=== PATIENT | female | born 1960 | race American Indian/Alaskan Native ===

== ENCOUNTER 2016-11-09 09:45 | Outpatient (CLI) | payer OTHER ==
--- NOTE | 2016-11-09 14:02 | Mammography Report ---
BILATERAL DIGITAL SCREENING MAMMOGRAM with CAD: 11/09/16 09:45:00 CLINICAL: Routine screening. COMPARISON:04/21/14 FINDINGS: The breasts are heterogeneously dense, which may obscure small masses. No mass, architectural distortion or suspicious calcifications. IMPRESSION: No mammographic evidence of malignancy. BI-RADS CATEGORY: 1 - - Negative RECOMMENDATION: Routine mammographic screening in one year. COMMENT: Patient follow-up letters are generated by our [employer] application.
== END 2016-11-09 09:46 | disposition home or self-care (01) ==
LOC: SPVWC 09:45
PROVIDERS: ATTEND Obstetrics & Gynecology
DX: Z12.31 Encounter for screening mammogram for malignant neoplasm of breast (principal)
CPT/HCPCS: 77067; G0202

== ENCOUNTER 2017-11-26 15:43 | Outpatient (CLI) | payer OTHER ==
--- NOTE | 2017-11-27 13:25 | Mammography Report ---
BILATERAL DIGITAL SCREENING MAMMOGRAM with CAD :11/26/17 15:43:00 CLINICAL: Routine screening. COMPARISON:11/09/16 FINDINGS: The breasts are extremely dense, which lowers the sensitivity of mammography. No mass, architectural distortion or suspicious calcifications. IMPRESSION: No mammographic evidence of malignancy. BI-RADS CATEGORY: 2 -- Benign RECOMMENDATION: Routine mammographic screening in one year. ACR BI-RADS MAMMOGRAPHIC CODES: 0 = Needs additional imaging evaluation; 1 = Negative; 2 = Benign; 3 = Probably benign; 4 = Suspicious; 5 = Malignant; 6 = Known biopsy-proven malignancy COMMENT: 1. Dense breast tissue, i.e., adenosis, fibrocystic changes, etc., may obscure an underlying neoplasm. 2. Approximately 10% of cancers are not detected with mammography. 3. A negative mammography report should not delay biopsy if a clinically suspicious mass is present. Patient follow-up letters are generated by our [employer] application.
== END 2017-11-26 15:44 | disposition home or self-care (01) ==
LOC: SPVWC 15:43
PROVIDERS: ATTEND Obstetrics & Gynecology
DX: Z12.31 Encounter for screening mammogram for malignant neoplasm of breast (principal)
CPT/HCPCS: 77067

== ENCOUNTER 2019-04-01 15:40 | Outpatient (CLI) | payer OTHER ==
--- NOTE | 2019-04-02 14:02 | Mammography Report ---
DIGITAL SCREENING MAMMOGRAM WITH CAD, 04/01/2019 INDICATION: Routine screening mammography. TECHNIQUE: Digital bilateral 2D mammography was obtained in the craniocaudal and mediolateral obliq ue projections. This examination was interpreted with the benefit of Computer-Aided Detection analysi s. COMPARISON: 11/26/2017 FINDINGS: Breast Density: The breasts are extremely dense, which lowers the sensitivity of mammography. There is no evidence of dominant mass, suspicious calcifications or architectural distortion in eithe r breast. IMPRESSION: No mammographic evidence of malignancy. Follow up recommendation: Routine yearly BI-RADS Category 2: Benign. A "normal" or negative report should not discourage follow up or biopsy of a clinically significant f inding. A written summary of these findings will be mailed to the patient. The patient will be entered into a mammography reporting system which will generate a reminder letter for the patient's next appointmen t at the appropriate interval. The [employer] recommends yearly mammograms starting at age 40 and continuing as l rosanne as a woman is in good health. Breast MRI is recommended for women with an approximate 20-25% or greater lifetime risk of breast cancer, including women with a strong family history of breast or ova eleazar cancer or who have been treated for Hodgkin's disease. Signer Name: Simón Styles MD Signed: 04/02/2019 1:57 PM Workstation Name: [id number]
== END 2019-04-01 15:41 | disposition home or self-care (01) ==
LOC: SPVWC 15:40
PROVIDERS: ATTEND Obstetrics & Gynecology
DX: Z12.31 Encounter for screening mammogram for malignant neoplasm of breast (principal)
CPT/HCPCS: 77067

== ENCOUNTER 2020-04-26 12:32 | Outpatient (CLI) | payer OTHER ==
--- NOTE | 2020-04-26 14:54 | Mammography Report ---
DIGITAL SCREENING MAMMOGRAM WITH CAD, 04/26/2020 CLINICAL INFORMATION / INDICATION: Routine screening mammography. TECHNIQUE: Digital bilateral 2D mammography was obtained in the craniocaudal and mediolateral obliqu e projections. This examination was interpreted with the benefit of Computer-Aided Detection analysis . COMPARISON: 04/01/2019 and prior FINDINGS: Breast Density: The breasts are extremely dense, which lowers the sensitivity of mammography. No dominant mass, suspicious calcifications, or architectural distortion in either breast. IMPRESSION: No mammographic evidence of malignancy. Follow up recommendation: Routine yearly BI-RADS Category 1: Negative. A "normal" or negative report should not discourage follow up or biopsy of a clinically significant f inding. A written summary of these findings will be mailed to the patient. The patient will be entered into a mammography reporting system which will generate a reminder letter for the patient's next appointmen t at the appropriate interval. The [employer] recommends yearly mammograms starting at age 40 and continuing as l rosanne as a woman is in good health. Breast MRI is recommended for women with an approximate 20-25% or greater lifetime risk of breast cancer, including women with a strong family history of breast or ova eleazar cancer or who have been treated for Hodgkin's disease. Signer Name: Herminio De Los Santos MD Signed: 04/26/2020 2:50 PM Workstation Name: [id number]
== END 2020-04-26 12:33 | disposition home or self-care (01) ==
LOC: SPVWC 12:32
PROVIDERS: ATTEND Obstetrics & Gynecology
DX: Z12.31 Encounter for screening mammogram for malignant neoplasm of breast (principal)
CPT/HCPCS: 77067

== ENCOUNTER 2020-06-29 14:34 | Outpatient (CLI) | payer OTHER ==
--- NOTE | 2020-06-29 15:58 | Ultrasound Report ---
RIGHT DIGITAL DIAGNOSTIC MAMMOGRAM WITH CAD CONVENTIONAL, 06/29/2020 RIGHT LIMITED BREAST ULTRASOUND CLINICAL INFORMATION / INDICATION: RIGHT BREAST LUMP TECHNIQUE: Digital right mammographic imaging was performed. Spot compression views were obtained. [facility]. This examination was interpreted with the benefit of Computer-Aided D etection (CAD) analysis. COMPARISON: 04/26/2020 FINDINGS: Breast Density: The breasts are extremely dense, which lowers the sensitivity of mammography. MAMMOGRAPHIC FINDINGS: There is extremely dense breast tissue seen on mammography. No discrete mammog raphic abnormality is seen to correspond to the area of palpable concern on the right. ULTRASOUND FINDINGS: Targeted ultrasound evaluation was performed of the area of interest. There is palpable concern in the upper outer quadrant of the right breast there are 2 sonographic abnormaliti es. These measure 2.5 x 1.1 x 2.4 cm and 1.4 x 0.9 x 1.4 cm respectively. These are areas of decrease d echogenicity relative to surrounding parenchyma. The margins are irregular and somewhat indistinct. Both appear to shadow somewhat the larger of the 2 more so than the smaller. IMPRESSION: There are 2 sonographic abnormalities corresponding to area of palpable concern in the ri ght breast which are suspicious. Ultrasound-guided biopsy is recommended. Follow up recommendation: Biopsy BI-RADS Category 4: Suspicious for Malignancy. A "normal" or negative report should not discourage follow up or biopsy of a clinically significant f inding. A written summary of these findings will be mailed to the patient. The patient will be entered into a mammography reporting system which will generate a reminder letter for the patient's next appointmen t at the appropriate interval. According to the [employer], yearly mammograms are recommended starting at age 40 and continuing as long as a woman is in good health. Breast MRI is recommended for women with an rey roximately 20-25% or greater lifetime risk of breast cancer, including women with a strong family his tory of breast or ovarian cancer and women who have been treated for Hodgkin's disease. Signer Name: Harpal Cantu MD Signed: 06/29/2020 3:54 PM Workstation Name: [id number]
== END 2020-06-29 14:35 | disposition home or self-care (01) ==
LOC: SPVWC 14:34
PROVIDERS: ATTEND Obstetrics & Gynecology
DX: N63.11 Unspecified lump in the right breast, upper outer quadrant (principal); R92.8 Other abnormal and inconclusive findings on diagnostic imaging of breast

== ENCOUNTER 2020-07-21 14:48 | Outpatient (CLI) | payer OTHER ==
--- NOTE | 2020-07-21 16:23 | Mammography Report ---
RIGHT DIAGNOSTIC MAMMOGRAM INDICATION: Biopsy of 2 areas in the right breast. COMPARISON: 06/29/2020. FINDINGS: Right breast CC and LM projection mammograms were obtained. These document the location of U-shaped and coil shaped (Hydromark) biopsy markers. These are located in the expected location, alth ough a mammographic correlate was never identified. IMPRESSION: Right breast mammograms documenting location of two biopsy markers (U-shaped and coil-shaped) at site s of recent ultrasound-guided core biopsies. BI-RADS Category 4: Suspicious for Malignancy. Signer Name: Adrián Peres MD Signed: 07/21/2020 4:18 PM Workstation Name: [id number]
--- NOTE | 2020-07-23 08:09 | Ultrasound Report ---
ULTRASOUND-GUIDED CORE NEEDLE BIOPSY Right BREAST WITH CLIP PLACEMENT (x2) INDICATION: 2 right breast masses. FINDINGS: Informed consent was obtained. The lesion within the right breast at the 10:00 position, 7 cm from th e nipple, identified with ultrasound. The overlying skin was cleansed with chloro prep and local anes thesia was obtained with a 1% lidocaine solution. Under ultrasound guidance a 14-gauge spring loaded core biopsy needle was advanced to the lesion. A total of 5 core samples were obtained. A U-shaped bi opsy marker was placed to rajat the site of the biopsy. The lesion within the right breast at the 11:30 position, 7 cm from the nipple, was identified with u ltrasound. The overlying skin was cleansed with chloro prep and local anesthesia was obtained with a 1% lidocaine solution. Under ultrasound guidance a 14-gauge spring loaded core biopsy needle was adva nced to the lesion. A total of 4 core samples were obtained. A Hydromark biopsy marker was placed to rajat the site of the biopsy. Specimen samples were placed in formalin and sent to pathology for luis armando sis. Patient tolerated the procedure well and no immediate complications were identified. A post procedure mammogram demonstrates biopsy markers in the expected locations. IMPRESSION: Technically successful ultrasound-guided core biopsy of right breast lesion at the 10:00 position wit h placement of a U-shaped biopsy marker. Technically successful ultrasound-guided core biopsy of right breast lesion at the 11:30 position wit h placement of a Hydromark biopsy marker. An addendum will be added to this report once pathology results are available. Signer Name: Adrián Peres MD Signed: 07/21/2020 4:01 PM Workstation Name: [id number]
== END 2020-07-21 14:49 | disposition home or self-care (01) ==
LOC: SPVWC 14:48
PROVIDERS: ATTEND Obstetrics & Gynecology
DX: N63.11 Unspecified lump in the right breast, upper outer quadrant (principal); N60.31 Fibrosclerosis of right breast; N64.89 Other specified disorders of breast
CPT/HCPCS: 88305